=== PATIENT | female | born 1970 | race Caucasian/White ===

== ENCOUNTER 2021-04-30 18:32 | Emergency (ER) | payer BC, MEDICAID ==
--- NOTE | 2021-04-30 19:04 | EDM.PDOC ---
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 She states she did not go to work today due to the pain. She reports a history of chronic low back pain with degenerative disc disease. She denies any recent injury or trauma. Gisselle states she was last seen 6 months ago for her back pain. She reports use of OTC muscle relaxer and pain medication helps her pain. She denies taking any OTC medications, NSAIDs or muscle relaxer for her current pain. She denies fever, chills, nausea, vomiting, change in bowel/bladder or loss of sensation to genitals. - Related Data Allergies Allergy/AdvReac Type Severity Reaction Status Date / Time No Known Allergies Allergy Verified 04/30/21 18:47 Home Meds: Home Meds Escitalopram [Lexapro] 15 mg PO DAILY 04/30/21 [History] Levothyroxine [Synthroid] 88 mcg PO ACBREAKFAST 04/30/21 [History] Omeprazole 20 mg PO DAILY 04/30/21 [History] Topiramate 50 mg PO DAILY 04/30/21 [History] Venlafaxine [Effexor XR] 150 mg PO DAILY 04/30/21 [History] hydrOXYzine HCL [Hydroxyzine HCl] 25 mg PO DAILY 04/30/21 [History] Past Medical History HEENT History: Reports: Allergic Rhinitis, Impaired Vision Respiratory History: Reports: Other (See Below) Other Respiratory History: exercise induced asthma Gastrointestinal History: Reports: Chronic Constipation, Chronic Diarrhea, Colon Polyp, GERD, Irritable Bowel Syndrome Genitourinary History: Reports: UTI, Recurrent [employer] History: Reports: Musculoskeletal History: Reports: Back Pain, Chronic, Fracture Neurological History: Reports: Migraines Psychiatric History: Reports: Anxiety, Bipolar Endocrine/Metabolic History: Reports: Hypothyroidism, Obesity/BMI 30+, Other (See Below) Other Endocrine/Metabolic History: prediabetic Hematologic History: Reports: Anemia Dermatologic History: Reports: Other (See Below) Other Dermatologic History: welts easily - Infectious Disease History Infectious Disease History: Reports: Chicken Pox - Past Surgical History HEENT Surgical History: Reports: Naso-Sinus Surgery GI Surgical History: Reports: Colonoscopy, Polypectomy Social & Family History - Tobacco Use Tobacco Use Status *Q: Never Tobacco User ED ROS GENERAL - Review of Systems Review Of Systems: See Below Constitutional: Reports: No Symptoms HEENT: Reports: No Symptoms Respiratory: Reports: No Symptoms Cardiovascular: Reports: No Symptoms Endocrine: Reports: No Symptoms GI/Abdominal: Reports: No Symptoms : Reports: No Symptoms Musculoskeletal: Reports: Back Pain, Muscle Pain (low back pain/spasms, low back pain with radiation to right lateral leg) Skin: Reports: No Symptoms Neurological: Denies: Numbness, Paresthesia, Tingling, Difficulty Walking, Weakness, Gait Disturbance Psychiatric: Reports: No Symptoms Hematologic/Lymphatic: Reports: No Symptoms Immunologic: Reports: No Symptoms ED EXAM,LOWER BACK PAIN/INJURY - Physical Exam Exam: See Below Exam Limited By: No Limitations General Appearance: Alert, WD/WN, No Apparent Distress Head: Atraumatic, Normocephalic Neck: Normal Inspection, Supple, Non-Tender, Full Range of Motion. No: Lymphadenopathy (R), Lymphadenopathy (L) Respiratory/Chest: No Respiratory Distress, Lungs Clear, Normal Breath Sounds, No Accessory Muscle Use, Chest Non-Tender. No: Crackles, Rales, Rhonchi, Wheezing, Stridor, Retractions, Splinting Cardiovascular: Normal Peripheral Pulses, Regular Rate, Rhythm, No Edema, No Gallop, No Murmur, No Rub GI/Abdominal: Normal Bowel Sounds, Soft, Non-Tender, No Organomegaly, No Distention, No Mass. No: Guarding, Rigid, Rebound Back Exam: Normal Inspection, Full Range of Motion, Muscle Spasm (right lower paraspinal muscles), Paraspinal Tenderness. No: CVA Tenderness (R), CVA Tenderness (L), Vertebral Tenderness Extremities: Normal Inspection, Normal Range of Motion, Non-Tender, No Pedal Edema, Normal Capillary Refill Neurological: Alert, Normal Mood/Affect, Normal Dorsiflexion, Normal Plantar Flexion, Normal Gait, Normal Reflexes, No Motor/Sensory Deficits, Oriented x 3. No: Tremor, Straight Leg Raise (L) (negative bilateral straight leg raise), Straight Leg Raise (R), Saddle Anesthesia, Difficulty Walking DTR - Lower Extremities: 4+: Knee (R), Knee (L) Psychiatric: Normal Affect, Normal Mood Skin Exam: Warm, Dry, Intact, Normal Color, No Rash Lymphatic: No Adenopathy Course - Vital Signs Last Recorded V/S: Last Vital Signs Temp 36.6 C 04/30/21 18:50 Pulse 87 04/30/21 18:50 Resp 17 04/30/21 18:50 BP 126/79 04/30/21 18:50 Pulse Ox 98 04/30/21 18:50 - Orders/Labs/Meds Meds: Medications Discontinued Medications Generic Name Dose Route Start Last Admin Trade Name Rodger PRN Reason Stop Dose Admin Baclofen 10 mg 04/30/21 19:32 04/30/21 19:49 Baclofen 10 Mg Tab PO 04/30/21 19:33 10 mg ONETIME ONE Administration Ketorolac Tromethamine 30 mg 04/30/21 19:32 04/30/21 19:46 Ketorolac 30 Mg/Ml Sdv IM 04/30/21 19:33 30 mg ONETIME ONE Administration Departure - Departure Time of Disposition: 19:41 Disposition: Home, Self-Care 01 Condition: Good Clinical Impression: Low back strain - Discharge Information *PRESCRIPTION DRUG MONITORING PROGRAM REVIEWED*: Not Applicable *COPY OF PRESCRIPTION DRUG MONITORING REPORT IN PATIENT [place]: Not Applicable Instructions: Lumbosacral Strain Referrals: Yolie Millan DO [Primary Care Provider] - Forms: ED Department Discharge Additional Instructions: You have been evaluated and treated for low lumbar strain. You were given toradol 30mg IM in the emergency room for pain along with baclofen 10mg for muscle spasms. Take naproxen 500mg by mouth in the morning and every 12 hours for pain. Take baclofen 10mg by mouth every 8 hours (three times a day) for muscle spasms. Ice to lower back for 3 days then try hot pack followed by muscle rub (bengay, capsaisin) for pain. Work on stretching, use of yoga for low back pain to help with pain and mobility. Walk and move around to prevent further stiffening of your muscles. Follow up with your primary provider in 14 days for a recheck and any further need of physical therapy referral or pain management referrals. Return for any worsening, issues or concerns. Sepsis Event Note (ED) - Evaluation Sepsis Screening Result: No Definite Risk - Focused Exam Vital Signs: Vital Signs Temp Pulse Resp BP Pulse Ox 04/30/21 18:50 36.6 C 87 17 126/79 98 04/30/21 18:49 36.6 C 87 17 126/79 98 - Assessment/Plan Assessment:: Low back strain Plan: Patient evaluated and treated for low lumbar strain. She was given toradol 30mg IM in the emergency room for pain along with baclofen 10mg for muscle spasms. Take naproxen 500mg by mouth in the morning and every 12 hours for pain. Take baclofen 10mg by mouth every 8 hours (three times a day) for muscle spasms. Ice to lower back for 3 days then try hot pack followed by muscle rub (bengay, capsaisin) for pain. Work on stretching, use of yoga for low back pain to help with pain and mobility. Walk and move around to prevent further stiffening of your muscles. Follow up with primary provider in 14 days for a recheck and any further need of physical therapy referral or pain management referrals. Return for any worsening, issues or concerns.
[2021-04-30] MEDS ORDERED: Ketorolac 30 MG/ML SDV IM ONE (19:32)
[2021-04-30] MEDS ORDERED: Baclofen 10 MG Tab PO ONE (19:32)
== END 2021-04-30 20:40 | disposition home or self-care (01) ==
LOC: JP.ED 18:32
DX: S39.012A Strain of muscle, fascia and tendon of lower back, initial encounter (principal); K21.9 Gastro-esophageal reflux disease without esophagitis; E03.9 Hypothyroidism, unspecified; E66.9 Obesity, unspecified; Z68.41 Body mass index [BMI] 40.0-44.9, adult; Z79.899 Other long term (current) drug therapy; X50.0XXA Overexertion from strenuous movement or load, initial encounter
CPT/HCPCS: 96372; 99283; A9270; J1885